=== PATIENT | female | born 1990 ===

== ENCOUNTER 2018-12-16 20:27 | Emergency (ER) | payer SELFPAY ==
--- NOTE | 2018-12-16 22:27 | ED PDOC ---
HPI: General Adult Time Seen by Provider: 12/16/18 21:43 Chief Complaint (Nursing): Dizziness/Lightheaded Chief Complaint (Provider): Dizziness/Lightheaded History Per: Patient History/Exam Limitations: no limitations Onset/Duration Of Symptoms: Days (x7) Current Symptoms Are (Timing): Still Present Additional Complaint(s): 28 y/o female with no significant PMHx presents to the ED for evaluation of generalized weakness, onset one weak ago. Patient reports weakness is associated with fatigue, myalgia, nausea, diarrhea and paresthesia to the hands and feet. Patient states she has had 4 episodes of paresthesias today. Of note, patient admits to having a lot of stress and feeling anxious and depressed. Otherwise, patient denies fever, chills, URI symptoms, sick contacts, travel, suicidal ideation, homicidal ideation, auditory and visual hallucinations. PMD: none Past Medical History Reviewed: Historical Data, Nursing Documentation, Vital Signs Vital Signs: Last Vital Signs Temp 98.4 F 12/16/18 20:32 Pulse 77 12/16/18 20:32 Resp 18 12/16/18 20:32 BP 136/89 12/16/18 20:32 Pulse Ox 100 12/16/18 20:32 - Medical History PMH: No Chronic Diseases - Surgical History Other surgeries: abdominal plasty and breast augmentation. - Family History Family History: States: CAD - Social History Current smoker - smoking cessation education provided: No Alcohol: Social - Allergies Allergies/Adverse Reactions: Allergies Allergy/AdvReac Type Severity Reaction Status Date / Time No Known Allergies Allergy Verified 12/16/18 20:32 Review of Systems ROS Statement: Except As Marked, All Systems Reviewed And Found Negative (as per HPI) Constitutional: Positive for: Weakness, Other (Fatigue and myalgia). Negative for: Fever, Chills Gastrointestinal: Positive for: Nausea, Diarrhea. Negative for: Vomiting Neurological: Positive for: Other (paresthesia to the hands and feet) Physical Exam - Reviewed Nursing Documentation Reviewed: Yes Vital Signs Reviewed: Yes - Physical Exam Appears: Positive for: No Acute Distress (but tired and somewhat tearful) Head Exam: Positive for: ATRAUMATIC, NORMOCEPHALIC Skin: Positive for: Normal Color, Warm, Dry Eye Exam: Positive for: Normal appearance, EOMI, PERRL Neck: Positive for: Normal, Painless ROM Cardiovascular/Chest: Positive for: Regular Rate, Rhythm. Negative for: Murmur Respiratory: Positive for: Normal Breath Sounds. Negative for: Respiratory Distress Gastrointestinal/Abdominal: Positive for: Normal Exam, Soft. Negative for: Tenderness Extremity: Positive for: Normal ROM. Negative for: Deformity Neurologic/Psych: Positive for: Alert, Oriented. Negative for: Motor/Sensory Deficits - Laboratory Results Result Diagrams: 12/16/18 22:58 12/16/18 22:58 - ECG O2 Sat by Pulse Oximetry: 100 (RA) Pulse Ox Interpretation: Normal Medical Decision Making Medical Decision Making: Time: 2143 Impression: Weakness Differentials include but not limited to dehydration, , electrolyte abnormality, thyroid dysfunction, anemia and stress Plan: -- Urine Drug Screen -- ED Urine -- ED Urine Dipstick -- Glucose, Blood POC Time: 2206 Plan: -- CMP -- Magnesium -- Phosphorus -- Thyroid Stimulating Hormone -- CBC with Differentials -- IV Insertion -- Infectious Mononucleosis No clinically significant abnormalities DW pt findings. Stable for discharge. Scribe Attestation: Documented by Tena Burton, acting as a scribe for Ellen Orellana MD. Provider Scribe Attestation: All medical record entries made by the Scribe were at my direction and personally dictated by me. I have reviewed the chart and agree that the record accurately reflects my personal performance of the history, physical exam, medical decision making, and the department course for this patient. I have also personally directed, reviewed, and agree with the discharge instructions and disposition. Disposition - Clinical Impression Clinical Impression: Weakness - Disposition Referrals: [facility] [place] [Outside] Disposition: Routine/Home Disposition Time: 00:00 Condition: STABLE Additional Instructions: TESHA MUCHOS LIQUIDOS Y DESCANSE. REMBETRO PENNY VITAMINA DIARIO. VISITA A LA CLINICA EN 2-3 GARNICA A CHEQAR DE NUEVO (LLAME A LA CLINICA POR LA MANANA A HACER PENNY WALTER.) Instructions: Stress, Weakness (ED) Print Language: FRENCH
[2018-12-16 23:02] LABS: BASO # 0.1 K/uL (0.0-0.2); EOS % 0.6 % (0.0-4.0); LYMPH # 2.2 K/uL (1.0-4.3); LYMPH % 34.3 % (20.0-40.0); MEAN CELL VOLUME 94.4 fl (81.0-99.0); MEAN CORPUSCULAR HEMOGLOBIN 31.5 pg (27.0-31.0); MEAN CORPUSCULAR HGB CONC 33.4 g/dL (33.0-37.0); MEAN PLATELET VOLUME 10.6 fl (7.2-11.7); MONO # 0.7 K/uL (0.0-0.8); MONO % 10.7 % (0.0-10.0); NEUT # 3.4 K/uL (1.8-7.0); NEUT % 53.4 % (50.0-75.0); RBC 4.46 Mil/uL (3.80-5.20); RED CELL DISTRIBUTION WIDTH 13.1 % (11.5-14.5); WHITE BLOOD COUNT 6.4 K/uL (4.8-10.8)
[2018-12-16 23:12] LABS: ALB/GLOB RATIO 1.3 (1.0-2.1); ALBUMIN 4.2 g/dL (3.5-5.0); ALT/SGPT 26 U/L (9-52); AST/SGOT 19 U/L (14-36); BLOOD UREA NITROGEN 8 mg/dl (7-17); CALCIUM 9.4 mg/dL (8.4-10.2); GFR NON-AFRICAN AMERICAN > 60
[2018-12-16 23:19] LABS: BARBITURATES, UR NEGATIVE (NEGATIVE); BENZODIAZEPINES, UR NEGATIVE (NEGATIVE); PHENCYCLIDINE, UR NEGATIVE (NEGATIVE)
[2018-12-16 23:35] LABS: OPIATES, UR NEGATIVE (NEGATIVE)
[2018-12-17 05:57] VITALS: BP 124/60; PULSE 70; RESP 24; TEMP 97.7
[2018-12-20 21:49] VITALS: O2SAT 100
== END 2018-12-17 00:25 | disposition home or self-care (01) ==
LOC: H.ER 20:27
DX: R53.1 Weakness (principal); Z82.49 Family history of ischemic heart disease and other diseases of the circulatory system
CPT/HCPCS: 80053; 81025; 83735; 84100; 84443; 85025; 86308; 99285; G0480